=== PATIENT | female | born 1995 | race Caucasian/White ===

== ENCOUNTER 2017-06-15 07:25 | Emergency (ER) | payer OTHER, SELFPAY ==
[2017-06-15 07:28] VITALS: BP 140/94; PULSE 99; RESP 17; TEMP 37; O2SAT 94; BMI 23.8
--- NOTE | 2017-06-15 07:46 | EKG12_ITS ---
Test Reason : LIGHTHEADED/WEAK Blood Pressure : / mmHG Vent. Rate : 080 BPM Atrial Rate : 080 BPM P-R Int : 132 ms QRS Dur : 080 ms QT Int : 382 ms P-R-T Axes : 049 057 029 degrees QTc Int : 440 ms Normal sinus rhythm Normal ECG Confirmed by DILIP DODSON, SHAY ([id number]), map editor NATHAN PURDY ([id number] on 06/16/2017 3:15:48 PM Referred By: KACEY Confirmed By:SHAY CHERRY MD
--- NOTE | 2017-06-15 07:47 | ED.VISSUMM ---
- ER Visit Summary Date of Service: 06/15/17 Chief Complaint: Bright red blood per rectum History of Present Illness: The patient is a 22 F presenting with bright red blood per rectum. She states this started 30 minutes ago. She has had dizziness without syncope. She denies abdominal pain or rectal pain. She has nausea with no vomiting. She has never had these symptoms in the past. She is not on any anticoagulants. Denies other complaints. Physical Examination: Vitals are stable. Patient is afebrile. Alert no acute distress. HEENT exam is unremarkable. Neck is supple. Lungs are clear and equal bilaterally. Heart is regular rate and rhythm. Abdomen is soft nontender nondistended. No guarding or rebound. Rectal: Normal tone, no external hemorrhoids Extremities are unremarkable. Skin is warm and dry. No focal neurologic deficit. Remainder of exam is unremarkable. Emergency Department Course and Treatment: Patient is given IV fluids, Zofran with improvement of her symptoms. EKG is sinus rhythm rate of 80 with no acute ischemic changes. CBC, chemistries unremarkable. HCG negative. Her dizziness has resolved. She has had no further bleeding in the emergency department. She has no external hemorrhoid, she is given Anusol for possible internal hemorrhoid. She is advised signs and symptoms for which to return to ED. She is advised to follow closely with her primary care physician. She understands and is agreeable with plan. Disposition: Discharge home Impression: GI bleed This note was generated with [email or web address] dictation software. It may contain incorrect words, spelling, and punctuation that were not noted in review of the chart prior to signing ED Disposition - Plan for ED Patient: Chief Complaint: GI Bleed Referrals: [facility] Doctor,Out of [NON-STAFF] -
--- NOTE | 2017-06-15 07:50 | NURSING ---
NO OLD EKGS
[2017-06-15] MEDS: 0.9% Normal Saline 1,000 ML 1000 ML IV (08:18)
[2017-06-15] MEDS: Ondansetron 4 MG/2 ML Vial IV (08:18)
[2017-06-15 08:33] LABS: Absolute Lymphocyte Count 1.44 X10^3/ul (0.83-4.51); Absolute Neutrophil Count 4.4 X10^3/uL (2.0-7.7); Basophil# 0.02 X10^3/uL; Basophil% 0.3 % (0-1); Eosinophil# 0.07 X10^3/uL; Eosinophils% 1.1 % (0-5); Hematocrit 40.5 % (37-47); Hemoglobin 13.9 g/dl (12.0-15.0); Lymphocyte # 1.44 X10^3/ul (4.0); Lymphocyte % 22.9 % (19-41); Mean Corp Hgb Conc 34.3 g/gl (32-36); Mean Corpuscular Hgb 30.3 pg (27.0-32.0); Mean Corpuscular Volume 88.2 fL (81-99); Mean Platelet Vol. 10.3 fl (6.2-12.0); Monocyte# 0.38 X10^3/uL; Monocyte% 6.1 % (0-10); Neutrophil # 4.35 X10^3/uL (2.7-7.7); Neutrophil % 69.3 % (47-70); Platelet Count 210 K/mm3 (150-450); RBC Distribution Width CV 12.7 % (11.6-14.6); RBC Distribution Width SD 40.8 fl (35.1-43.9); Red Blood Count 4.59 M/mm3 (4.2-5.4); White Blood Count 6.3 K/mm3 (4.4-11.0)
[2017-06-15 08:35] LABS: POSITIVE COUNT NO; POSITIVE DIFFERENTIAL NO; POSITIVE MORPHOLOGY NO
[2017-06-15 08:46] LABS: Anion Gap 6 (5-15); BUN 9 mg/dL (7-18); Calcium,Total 8.2 mg/dL (8.5-10.1); Chloride 108 mmol/L (98-107); EST Glomerular Filtration Rate 134 mL/min (>60); Est Glom Filt Rate - Afr Amer 162 mL/min (>60); Estimated Creatinine Clearance 122.69 ml/min; Glucose 84 mg/dL (74-106); Potassium 3.7 mmol/L (3.5-5.1); Sodium Level 140 mmol/L (136-145)
[2017-06-15 08:53] LABS: Pregnancy, Serum, hCG Quali. NEGATIVE Negative (0-9 Nonpreg)
--- NOTE | 2017-06-15 09:14 | DCINST.ED_ITS ---
ED Disposition - Plan for ED Patient: Chief Complaint: GI Bleed Instructions: ED Hematochezia Stable Prescriptions: Hydrocortisone [Anusol Hc] 25 mg RECTAL DAILY PRN PRN #10 suppos. PRN Reason: Hemorrhoids Referrals: [facility] Doctor,Out of [NON-STAFF] -
== END 2017-06-15 09:25 | disposition home or self-care (01) ==
PROVIDERS: Emergency Provider Emergency Medicine
DX: K62.5 Hemorrhage of anus and rectum (principal); R42 Dizziness and giddiness; F32.9 Major depressive disorder, single episode, unspecified; Z79.899 Other long term (current) drug therapy
CPT/HCPCS: 80048; 82274; 84703; 85025; 93005; 96361; 96374; 99283; J7030; J2405